=== PATIENT | female | born 1940 | race Two or more races ===

== ENCOUNTER 2019-11-30 13:54 | Outpatient (CLI) | payer MEDICARE, OTHER ==
--- NOTE | 2019-11-30 19:00 | Consultation ---
DATE OF CONSULTATION: 11/30/2019 GASTROENTEROLOGY CONSULTATION CONSULTING PHYSICIAN: Ge Andujar M.D. CHIEF COMPLAINT: Abdominal pain. HISTORY OF PRESENT ILLNESS: This is a pleasant 79-year-old [place] female with past medical history of diabetes, hypertension, and hypercholesterolemia, who has complaint of abdominal with significant bloating, gas, and distension. According to her, last colonoscopy was over 5 years ago. Denies any dysphagia. Denies any odynophagia. Denies any melena. Denies hematochezia. PAST MEDICAL HISTORY: 1. Hypertension. 2. Diabetes. 3. Hypercholesterolemia. PAST SURGICAL HISTORY: None. ALLERGIES: None. MEDICATIONS: Please see medication reconciliation list. FAMILY HISTORY: Noncontributory. SOCIAL HISTORY: The patient lives alone. Denies any tobacco, alcohol, or IV drug abuse. REVIEW OF SYSTEMS: A 10-point review of systems was performed and pertinent positives in the HPI. PHYSICAL EXAMINATION: GENERAL: A well-developed female, in no acute distress. HEENT: Normocephalic and atraumatic. Sclerae anicteric. NECK: Supple. No evidence of obvious lymphadenopathy. CARDIOVASCULAR: Regular rate and rhythm. Plus S1, S2. LUNGS: Clear to auscultation bilaterally. ABDOMEN: Positive bowel sounds. Soft and nontender. No rebound. No guarding. No peritoneal sign. EXTREMITIES: No cyanosis. No clubbing. No edema. ASSESSMENT: This is a 79-year-old female with abdominal pain, bloating, gas, and distension. PLAN: The patient is going to get a CT scan next Thursday. We told her to come back after the CT scan, so we can review it. Also meanwhile, we are going to start her on Xifaxan 550 p.o. t.i.d for 14 days for SIBO. The patient might need endoscopy and colonoscopy. We will evaluate next time after completion of the Xifaxan and also after the CT results are available. I want to thank Dr. Pacheco for this kind referral. Ge Andujar M.D. DR: ANNIE JOB#: [id number] CC: Dr. Pacheco
[2019-12-06] MEDS ORDERED: AMLODIPINE BESYL5 MG ORAL (13:35)
[2019-12-06] MEDS ORDERED: VITAMIN D33000 UNI1 PO (13:35)
[2019-12-06] MEDS ORDERED: CRESTOR10 M2 ORAL (13:35)
[2019-12-06] MEDS ORDERED: AVAPRO75 MG ORAL (13:35)
[2019-12-06] MEDS ORDERED: GLIMEPIRIDE1 MG ORAL (13:35)
[2019-12-06] MEDS ORDERED: ASPIRIN EC81 MG ORAL (13:35)
== END 2019-11-30 15:54 | disposition home or self-care (01) ==
LOC: PAN 13:54
DX: R10.9 Unspecified abdominal pain (principal); E11.9 Type 2 diabetes mellitus without complications; I10 Essential (primary) hypertension; E78.00 Pure hypercholesterolemia, unspecified; R14.0 Abdominal distension (gaseous)
CPT/HCPCS: G0463

== ENCOUNTER 2019-12-19 13:38 | Outpatient (CLI) | payer MEDICARE, OTHER ==
[~2019-12-19 13:38] MED LIST: AMLODIPINE BESYL5 MG ORAL; ASPIRIN EC81 MG ORAL; AVAPRO75 MG ORAL; CRESTOR10 M2 ORAL; GLIMEPIRIDE1 MG ORAL; VITAMIN D33000 UNI1 PO
[2019-12-19 13:55] VITALS: BP 125/80
--- NOTE | 2019-12-19 14:22 | General Progress Note ---
Assessment/Plan Assessment/Plan: constipation ? SIBO abd pain CT reviewed s/p Xifaxan with no improvement plan EGD and colonoscopy VSL #3 linzess 145 Subjective ROS Limited/Unobtainable: Yes Allergies: Coded Allergies: No Known Allergies (Unverified , 12/06/19) Objective Last 24 Hour Vital Signs Date Time Temp Pulse Resp B/P (MAP) Pulse Ox O2 Delivery O2 Flow Rate FiO2 12/19/19 13:55 80 16 125/80 (95) 97 General Appearance: alert EENT: normal ENT inspection Neck: supple Cardiovascular: normal rate Respiratory/Chest: lungs clear Abdomen: normal bowel sounds, non tender, soft Extremities: non-tender Ge Andujar MD Dec 19, 2019 14:22
== END 2019-12-19 15:38 | disposition home or self-care (01) ==
LOC: PAN 13:38
DX: K59.00 Constipation, unspecified (principal); R10.9 Unspecified abdominal pain
CPT/HCPCS: 99212

== ENCOUNTER 2019-12-21 08:48 | Day surgery (SDC) | payer MEDICARE, OTHER ==
[~2019-12-21] VITALS: Ht 157.5 cm; Wt 52.6 kg
[2019-12-21] VITALS (9 sets, daily range): BP systolic 126–156; BP diastolic 67–79
[~2019-12-21 08:48] MED LIST changes: +LR 1000ml 1,000 ML IVLG SCH
--- NOTE | 2019-12-21 10:32 | Anethesia Preoperative Eval ---
Anesthesia Pre-op PMH/ROS General Date of Evaluation: Dec 21, 2019 Time of Evaluation: 10:32 Anesthesiologist: abel ASA Score: ASA 4 Mallampati Score Class I : Soft palate, uvula, fauces, pillars visible Class II: Soft palate, uvula, fauces visible Class III: Soft palate, base of uvula visible Class IV: Only hard plate visible Mallampati Classification: Class II Surgeon: marissa Diagnosis: gerd, abdominal pain Surgical Procedure: egd/colonoscopy Anesthesia History: none Social History: smoking - nonsmoker Family History: no anesthesia problems Allergies: Coded Allergies: No Known Allergies (Unverified , 12/21/19) Medications: see eMAR Patient NPO?: Yes Past Medical History Cardiovascular: Reports: HTN, other - hypercholesterolemia Endocrine: Reports: DM Musculoskeletal/Integumentary: Reports: other - back pain Anesthesia Pre-op Phys. Exam Physician Exam Last Vital Signs Date Time Temp Pulse Resp B/P (MAP) Pulse Ox O2 Delivery O2 Flow Rate FiO2 12/21/19 10:09 Room Air 12/21/19 09:41 96.2 79 14 141/73 97 Constitutional: NAD Neurologic: CN 2-12 intact, other - essential tremor Cardiovascular: RRR Respiratory: CTA Gastrointestinal: S/NT/ND Airway Exam Mallampati Score: Class II MO: limited Neck: flexible TMD: 2fb ROM: limited Anesthesia Pre-op A/P Risk Assessment & Plan Assessment: asa4 Plan: mac Status Change Before Surgery: No Pre-Antibiotics Drug: Rukhsana Aldrich MD Dec 21, 2019 10:32
[2019-12-21] MEDS ORDERED: LR 1000ml 1,000 ML IVLG SCH (10:37)
--- NOTE | 2019-12-21 10:40 | Pre-Procedure Note/Attestation ---
Pre-Procedure Note/Attestation Complete Prior to Procedure Planned Procedure: not applicable Procedure Narrative: esophagogastroduodenoscopy and colonoscopy Indications for Procedure Pre-Operative Diagnosis: screening colon, GERD Attestation I attest that I discussed the nature of the procedure; its benefits; risks and complications; and alternatives (and the risks and benefits of such alternatives ), prior to the procedure, with the patient (or the patient's legal sales representative livestock). I attest that, if there was a reasonable possibility of needing a blood transfusion, the patient (or the patient's legal sales representative livestock) was given the [facility] standardized written summary, pursuant to the [place] Blood Safety Act ([place] Health and Safety Code # 1645, as amended). I attest that I re-evaluated the patient just prior to the surgery and that there has been no change in the patient's H&P, except as documented below: Ge Andujar MD Dec 21, 2019 10:40
--- NOTE | 2019-12-21 10:41 | Short Stay Surgery H&P ---
History of Present Illness History of Present Illness Chief Complaint see recent office note HPI Natan Carr is a 79 year old female who was admitted on for Gerd, Abdominal Pain Patient History Allergies: Coded Allergies: No Known Allergies (Unverified , 12/21/19) Medication History Scheduled Amlodipine Besylate* (Amlodipine Besylate*), Unknown Dose ORAL DAILY, (Reported) Aspirin Ec* (Aspirin Ec*), 81 MG ORAL DAILY, (Reported) Cholecalciferol (Vitamin D3) (Vitamin D3), Unknown Dose PO DAILY, (Reported) Glimepiride* (Glimepiride*), Unknown Dose ORAL BEFORE BREAKFAST, (Reported) Irbesartan* (Avapro*), Unknown Dose ORAL DAILY, (Reported) Rosuvastatin Calcium* (Crestor*), Unknown Dose ORAL DAILY, (Reported) Physical Exam Vital Signs Last Vital Signs Date Time Temp Pulse Resp B/P (MAP) Pulse Ox O2 Delivery O2 Flow Rate FiO2 12/21/19 10:09 Room Air 12/21/19 09:41 96.2 79 14 141/73 97 Plan Attestation Are the patient's medical conditions optimized for surgery? Ge Andujar MD Dec 21, 2019 10:40
[2019-12-21] MEDS ORDERED: DiphenhydrAMINE 50mg/ml Inj IVP PRN (10:45)
[2019-12-21] MEDS ORDERED: fentaNYL 100 mcg/2 mL IV PRN (10:45)
[2019-12-21] MEDS ORDERED: Atropine Inj 1mg/10ml Syr IV PRN (10:45)
[2019-12-21] MEDS ORDERED: Midazolam 2mg/2ml Inj IVP PRN (10:45)
[2019-12-21] MEDS ORDERED: Lidocaine 1% MPF 10mg/ml 5ml ONE (11:00)
[2019-12-21] MEDS ORDERED: LR 1000ml ONE (11:00)
[2019-12-21] MEDS ORDERED: Propofol 200mg/20ml IV ONE (11:00)
--- NOTE | 2019-12-21 11:45 | Endoscopy Procedure Note ---
Endoscopy Procedure Note General Indication for Procedure: screening colon, GERD, Procedures Performed: EGD, colonoscopy Operative Findings/Diagnosis: gastritis, hemorrhoids Specimen: yes Pt Tolerated Procedure Well: Yes Estimated Blood Loss: none Anesthesia Anesthesiologist: yobani Anesthesia: MAC Inserted Devices Implant(s) used?: No Quality Quality of Bowel Preparation: Good Did scope reach the cecum?: Yes Was there any complications?: No GI Core Measures 50 yrs or older w/o bx or poly: No 10yrs. F/U recommended: Yes If not recommended, why?: Above average risk 18 years or older w/prev. colo: Yes <3yrs. since last colonoscopy: No Ge Andujar MD Dec 21, 2019 11:45
--- NOTE | 2019-12-21 15:45 | Procedure Note ---
DATE OF PROCEDURE: 12/21/2019 SURGEON: Ge Andujar M.D. PROCEDURE: Upper endoscopy with biopsy and colonoscopy with biopsy. ANESTHESIA: Per Dr. Madison. INSTRUMENT: Olympus adult flexible upper endoscope and colonoscope. INDICATION: Screening colonoscopy evaluation, abdominal pain, weight loss. REASON FOR PROCEDURE: The procedure, risks, benefits, and possible consequences, including hemorrhage, aspiration, perforation and infection, and alternative treatments, were explained to the patient/legal guardian by Dr. Ge Andujar and the patient/legal guardian understood and accepted these risks. DESCRIPTION OF PROCEDURE: After informed consent was obtained and the patient was adequately sedated, Olympus upper endoscope was advanced from mouth into the second portion of the duodenum and retroflexion was performed in the stomach. The patient had multiple antral erosions, most of them in the prepyloric region. Random biopsy from antrum and body was obtained to rule out H. pylori infection. Otherwise, the rest of upper endoscopic examination grossly looked within normal limits. At this time, the upper endoscope was retrieved. The patient was turned over for colonoscopy. First, rectal exam was performed, which was positive for internal hemorrhoids. Then, the scope was advanced from rectum into the cecum then subsequently to terminal ileum. Quality of prep overall was very good. The patient had some flattening of the mucosa in the terminal ileum, which was biopsied for diagnosis. The rest of the colonoscopy examination grossly looked within normal limits. No obvious mass, polyp, or any pathology was seen. Retroflexion of rectum showed evidence of internal hemorrhoids. The patient tolerated the procedure very well without any complication. SUMMARY OF FINDINGS: 1. Multiple antral erosions. 2. Gastritis, status post biopsy. 3. Flattening of the terminal ileal mucosa, status post biopsy. 4. Internal hemorrhoids. RECOMMENDATIONS: Follow up biopsy results and treat accordingly. Ge Andujar M.D. DR: ORLIN JOB#: [id number] CC:
== END 2019-12-21 12:50 | disposition home or self-care (01) ==
LOC: GAS 08:48
DX: Z12.11 Encounter for screening for malignant neoplasm of colon (principal); R10.9 Unspecified abdominal pain; R63.4 Abnormal weight loss; Z68.21 Body mass index [BMI] 21.0-21.9, adult; Z79.82 Long term (current) use of aspirin; K21.9 Gastro-esophageal reflux disease without esophagitis
CPT/HCPCS: 43239; 45380; 93005; J2704; J7120; 94003; 94150

== ENCOUNTER 2020-01-04 12:23 | Outpatient (CLI) | payer MEDICARE, OTHER ==
[~2020-01-04 12:23] MED LIST changes: -LR 1000ml 1,000 ML IVLG SCH
--- NOTE | 2020-01-04 13:10 | General Progress Note ---
Assessment/Plan Assessment/Plan: Assessment/Plan Assessment/Plan: constipation ? SIBO abd pain gastritis ? IBS CT reviewed s/p Xifaxan with no improvement s/p EGD and colonoscopy: Assessment/Plan Assessment/Plan: constipation ? SIBO abd pain CT reviewed s/p Xifaxan with no improvement s/p EGD and colonoscopy VSL #3 linzess 145 RTC prn Subjective ROS Limited/Unobtainable: Yes Allergies: Coded Allergies: No Known Allergies (Unverified , 12/21/19) Objective General Appearance: alert EENT: normal ENT inspection Neck: supple Cardiovascular: normal rate Respiratory/Chest: decreased breath sounds Abdomen: normal bowel sounds, non tender, soft Ge Andujar MD Jan 04, 2020 13:10
== END 2020-01-04 15:52 | disposition home or self-care (01) ==
LOC: PAN 12:23
DX: K59.00 Constipation, unspecified (principal); R10.9 Unspecified abdominal pain; K29.70 Gastritis, unspecified, without bleeding
CPT/HCPCS: 99212

== ENCOUNTER 2020-03-14 12:50 | Outpatient (CLI) | payer MEDICARE, OTHER ==
[2020-03-14 13:00] VITALS: BP 133/66
--- NOTE | 2020-03-14 15:12 | General Progress Note ---
Assessment/Plan Assessment/Plan: Assessment/Plan Assessment/Plan: constipation ? SIBO abd pain gastritis ? IBS CT reviewed s/p Xifaxan with no improvement s/p EGD and colonoscopy: elevated CA 19-9 plan eus stool ob fu PET scan Subjective ROS Limited/Unobtainable: Yes Allergies: Coded Allergies: No Known Allergies (Unverified , 12/21/19) Objective General Appearance: alert EENT: normal ENT inspection Neck: supple Cardiovascular: normal rate Respiratory/Chest: lungs clear Abdomen: normal bowel sounds, non tender, soft Extremities: non-tender Ge Andujar MD March 14, 2020 15:12
[2020-03-15] MEDS ORDERED: PROBIOTIC1 EAC2 PO (14:34)
== END 2020-03-14 14:50 | disposition home or self-care (01) ==
LOC: PAN 12:50
DX: K59.00 Constipation, unspecified (principal); R10.9 Unspecified abdominal pain; K29.70 Gastritis, unspecified, without bleeding
CPT/HCPCS: 99212